=== PATIENT | female | born 1995 | race Caucasian/White ===

== ENCOUNTER 2019-10-15 08:02 | Emergency (ER) | payer SELFPAY ==
[~2019-10-15] VITALS: Ht 167.6 cm; Wt 117.9 kg
[2019-10-15 08:04] VITALS: BP_SYST 128
--- NOTE | 2019-10-15 08:05 | NUR ---
BROUGHT BACK TO BED #3 AND TRIAGED, REPORT GIVEN TO VALDEZ
--- NOTE | 2019-10-15 08:05 | NUR ---
Dr. Amezquita at bedside for examination.
--- NOTE | 2019-10-15 08:46 | NUR ---
Patient brought self to ED with c/o sore throat and cough x 3 days. Upon arrival, patient in no signs of distress. Patient breathing evenly with chest rise and fall. Patient complains of generalized pain 4/10 but is tolerable and is able to follow commands. Safety precautions enforced.
[2019-10-15 10:16] VITALS: BP_SYST 126
--- NOTE | 2019-10-15 10:16 | NUR ---
Patient given written and verbal discharge instructions and verbalizes understanding. ER MD discussed with patient the results and treatment provided. Patient in stable condition. ID arm band removed. Rx of naprosyn, tamiflu, and throat spray given. Patient educated on pain management and to follow up with PMD. Pain Scale 4/10.Opportunity for questions provided and answered. Medication side effect fact sheet provided.
== END 2019-10-15 10:16 | disposition home or self-care (01) ==
LOC: SED 08:02
DX: J10.1 Influenza due to other identified influenza virus with other respiratory manifestations (principal); B97.89 Other viral agents as the cause of diseases classified elsewhere
CPT/HCPCS: 36415; 86403; 86710; 87081; 99283